=== PATIENT | male | born 1985 | race Caucasian/White ===

== ENCOUNTER 2021-01-24 17:16 | Emergency (ER) | payer OTHER ==
--- NOTE | 2021-01-24 17:46 | EDM.PDOC ---
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 The shock was brief. He did not lose consciousness and did not lose muscle control. Patient denies pain or sob. Onset Date: 01/24/21 Onset Time: 14:30 Location: Reports: Upper Extremity, Right Severity: Mild - Related Data Allergies Allergy/AdvReac Type Severity Reaction Status Date / Time No Known Allergies Allergy Verified 01/24/21 17:48 Past Medical History Immunologic History: Reports: Other (See Below) (Seasonal allergies) ED ROS GENERAL - Review of Systems Review Of Systems: Comprehensive ROS is negative, except as noted in HPI. ED EXAM, GENERAL - Physical Exam Exam: See Below Exam Limited By: No Limitations General Appearance: Alert, WD/WN, No Apparent Distress Neck: Normal Inspection Respiratory/Chest: No Respiratory Distress, Lungs Clear, Normal Breath Sounds Cardiovascular: Regular Rate, Rhythm, No Murmur Extremities: Normal Inspection, Normal Range of Motion, Non-Tender Neurological: Alert, Oriented, Normal Cognition, No Motor/Sensory Deficits Psychiatric: Normal Affect, Normal Mood Skin Exam: Warm, Dry, Intact, Normal Color #1 Interpretation EKG Date: 01/24/21 Time: 17:40 Rhythm: NSR Rate (Beats/Min): 84 [place]: Normal P-Wave: Present QRS: Normal ST-T: Other (No ST abnormalities, inverted T wave III) QT: Normal Comparison: NA - No Prior EKG Course - Vital Signs Last Recorded V/S: Last Vital Signs Temp 36.7 C 01/24/21 17:20 Pulse 84 01/24/21 17:20 Resp 18 01/24/21 17:20 BP 132/83 01/24/21 17:20 Pulse Ox 96 01/24/21 17:20 - Orders/Labs/Meds Orders: Active Orders 24 hr Category Date Time Status EKG Documentation Completion [RC] ASDIRECTED Care 01/24/21 17:39 Ordered EKG 12 Lead [EK] Stat Ther 01/24/21 17:38 Ordered Departure - Departure Time of Disposition: 17:49 Disposition: Home, Self-Care 01 Condition: Good Clinical Impression: Electrocution - Discharge Information *PRESCRIPTION DRUG MONITORING PROGRAM REVIEWED*: No *COPY OF PRESCRIPTION DRUG MONITORING REPORT IN PATIENT CARSON: Not Applicable Instructions: Electric Shock Injury Additional Instructions: Follow up with any concerns. Sepsis Event Note (ED) - Evaluation Sepsis Screening Result: No Definite Risk - Focused Exam Vital Signs: Vital Signs Temp Pulse Resp BP Pulse Ox 01/24/21 17:20 36.7 C 84 18 132/83 96 - My Orders Last 24 Hours: My Active Orders 01/24/21 17:38 EKG 12 Lead [EK] Stat 01/24/21 17:39 EKG Documentation Completion [RC] ASDIRECTED - Assessment/Plan Last 24 Hours: My Active Orders 01/24/21 17:38 EKG 12 Lead [EK] Stat 01/24/21 17:39 EKG Documentation Completion [RC] ASDIRECTED
== END 2021-01-24 18:00 | disposition home or self-care (01) ==
LOC: FB.ED 17:16
DX: T75.4XXA Electrocution, initial encounter (principal)
CPT/HCPCS: 93005; 93010; 99283; 99283-25